=== PATIENT | male | born 1985 | race Caucasian/White ===

== ENCOUNTER 2017-04-22 19:05 | Emergency (ER) | payer OTHER ==
[~2017-04-22] VITALS: Ht 172.7 cm; Wt 82.0 kg
[~2017-04-22 19:05] MED LIST: CHLO.12%30 SSP; PENVK500 PO
[2017-04-22 19:07] VITALS: BP 143/85; PULSE 88; RESP 15; TEMP 98.8; O2SAT 98
--- NOTE | 2017-04-22 20:05 | PD ---
Physical Exam Date Seen by Provider: Apr 22, 2017 Time Seen by Provider: 20:03 Narrative 31 yo male here for rash to stomach. Has had it for a week. Painful. Warm. Pustule like. Getting bigger. No other medical issues. No fevers. Pain is 3/10. No injuries. Vitals are stable in triage. Awaiting bed placement. Data Data Last Documented VS Vital Signs Date Time Temp Pulse Resp B/P Pulse Ox O2 Delivery O2 Flow Rate FiO2 04/22/17 19:07 98.8 88 15 143/85 98 Room Air [facility] Medical Record Reviewed: Yes Supervised Visit with PRASANNA: No Abbe Jones Apr 22, 2017 20:05
[2017-04-22] MEDS ORDERED: CEPHALEXIN MONOHYDRATE 500 MG CAP PO ONE (23:15)
[2017-04-22] MEDS ORDERED: SULFAMETHOXAZOLE-TRIMETHOPRIM DS 800-160 MG TAB PO ONE (23:15)
[2017-04-22] MEDS ORDERED: BACT800T5 PO (23:19)
[2017-04-22] MEDS ORDERED: CEPH-460 PO (23:19)
--- NOTE | 2017-04-22 23:19 | PD ---
HPI Chief Complaint: Skin Problem Time Seen by Provider: 23:16 Travel History International Travel<30 days: No Contact w/Intl Traveler<30days: No Traveled to known affect area: No History of Present Illness HPI 31 year-old male with no significant medical history presents to the emergency department for evaluation of a reddened area on his right lower abdomen. Patient states he had what he thought was a pimple 3 days ago. He states he squeezed it and nothing came out. He states the redness has spread and he felt like he should get it evaluated. Denies any fever or chills. States the area is sore but not real painful. He has no other symptoms to report. He is up-to- date on his tetanus vaccination.. PFSH Past Medical History Medical History: Denies Significant Hx ?: Not Past Surgical History Surgical History: No Previous Surgery Social History Alcohol Use: Yes Tobacco Use: Yes Substance Use: No Allergies-Medications (Allergen,Severity, Reaction): Coded Allergies: No Known Allergies (Unverified , 04/12/16) Reported Meds & Prescriptions Reported Meds & Active Scripts Active Keflex (Cephalexin) 500 Mg Cap 500 Mg PO Q6H 5 Days Bactrim DS (Sulfamethoxazole-Trimethoprim) 800-160 Mg Tab 1 Tab PO BID Review of Systems Except as stated in HPI: all other systems reviewed are Neg Physical Exam Narrative GENERAL: Well-nourished, well-developed patient in no acute distress SKIN: Focused skin assessment warm/dry. HEAD: Normocephalic. EYES: No scleral icterus. No injection or drainage. NECK: Supple, trachea midline. No JVD or lymphadenopathy. CARDIOVASCULAR: Regular rate and rhythm without murmurs, gallops, or rubs. RESPIRATORY: Breath sounds equal bilaterally. No accessory muscle use. GASTROINTESTINAL: Abdomen soft, non-tender, nondistended. There is a 14 cm x 8 cm area of erythema on the right lower quadrant. At the center of this appears to be a 3 mm sized ruptured pustule. There is no fluctuation. There is moderate induration. No active drainage. MUSCULOSKELETAL: No cyanosis, or edema. BACK: Nontender without obvious deformity. No CVA tenderness. Data Data Last Documented VS Vital Signs Date Time Temp Pulse Resp B/P Pulse Ox O2 Delivery O2 Flow Rate FiO2 04/22/17 19:07 98.8 88 15 143/85 98 Room Air Orders Sulfamet-Trimeth Ds 800-160 Mg (Bactrim (04/22/17 23:15) Cephalexin (Keflex) (04/22/17 23:15) Clindamycin Inj (Cleocin Inj) (04/22/17 23:30) MDM Medical Decision Making Medical Screen Exam Complete: Yes Emergency Medical Condition: Yes Medical Record Reviewed: Yes Differential Diagnosis Cellulitis versus abscess versus folliculitis Narrative Course 31-year-old male presents to the emergency department for evaluation. Physical exam is consistent with a cellulitis. The areas marked. Patient is given a dose of antibiotic here. He is aware that this may develop into an abscess that will need to be drained here in the emergency department. He agrees to return immediately with any acute worsening of symptoms. Diagnosis Primary Impression: Cellulitis of right abdominal wall Referrals: Primary Care Physician Patient Instructions: Cellulitis (ED), General Instructions Departure Forms: Tests/Procedures, Work Release Enter return to work date: Apr 24, 2017 Additional Instructions: Warm compresses to the affected area DO NOT squeeze the area IF a raised area develops, it may need to be drained. This can be done in the emergency department. Do not attempt this on your own Take antibiotic as prescribed. Return immediately with any acute worsening of symptoms Med/Other Pt SpecificInfo: Prescription(s) given Scripts Cephalexin (Keflex)500 Mg [id number] Mg PO Q6H 5 Days Ref 0 Prov:Beata Rush 04/22/17 Sulfamethoxazole-Trimethoprim (Bactrim DS)800-160 Mg Tab1 Tab PO BID #20 TAB Ref 0 Prov:Beata Rush 04/22/17 Disposition: 01 DISCHARGE HOME Condition: Stable Beata Rush Apr 22, 2017 23:19
[2017-04-22] MEDS ORDERED: CLINDAMYCIN PHOS 600 MG/4 ML VIAL IM ONE (23:30)
== END 2017-04-23 00:05 | disposition home or self-care (01) ==
LOC: NEPD 19:05
DX: L03.311 Cellulitis of abdominal wall (principal); Z72.0 Tobacco use
CPT/HCPCS: 96372

== ENCOUNTER 2017-10-23 15:58 | Emergency (ER) | payer OTHER ==
[~2017-10-23] VITALS: Ht 172.7 cm; Wt 82.0 kg
[~2017-10-23 15:58] MED LIST changes: +BACT800T5 PO; +CEPH-460 PO; -CHLO.12%30 SSP; -PENVK500 PO
[2017-10-23 16:00] VITALS: BP 119/82; PULSE 79; RESP 18; TEMP 98.5; O2SAT 97
[2017-10-23] MEDS ORDERED: SULFAMETHOXAZOLE-TRIMETHOPRIM DS 800-160 MG TAB PO ONE (18:30)
[2017-10-23] MEDS ORDERED: CEPHALEXIN MONOHYDRATE 500 MG CAP PO ONE (18:30)
[2017-10-23] MEDS ORDERED: ERYTOIN10 LEFT EYE (18:34)
[2017-10-23] MEDS ORDERED: CEPH-460 PO (18:34)
[2017-10-23] MEDS ORDERED: BACT800T5 PO (18:34)
--- NOTE | 2017-10-23 18:35 | PD ---
HPI Chief Complaint: Skin Problem Time Seen by Provider: 18:15 Travel History International Travel<30 days: No Contact w/Intl Traveler<30days: No Traveled to known affect area: No History of Present Illness HPI 32-year-old male presents to the emergency department for evaluation of an area of erythema to his right abdominal wall. Patient states he had a small ingrown hair and popped this and now be erythema has spread. Patient denies any fevers or chills. He states that he is concerned that it also spread to his left eye as he has a small bump to the upper eyelid. He reports no chronic medical problems and takes no prescribed medications. He is not currently on antibiotics. No exacerbating or alleviating factors. Moderate severity. PFSH Past Medical History Diabetes: No ('BORDERLINE") Past Surgical History Surgical History: No Previous Surgery Social History Alcohol Use: No Tobacco Use: No Substance Use: No Allergies-Medications (Allergen,Severity, Reaction): Coded Allergies: No Known Allergies (Unverified Adverse Reaction, Unknown, 10/23/17) Reported Meds & Prescriptions Reported Meds & Active Scripts Active Keflex (Cephalexin) 500 Mg Cap 500 Mg PO Q6H 5 Days Bactrim DS (Sulfamethoxazole-Trimethoprim) 800-160 Mg Tab 1 Tab PO BID Review of Systems Except as stated in HPI: all other systems reviewed are Neg Physical Exam Narrative GENERAL: Well-nourished, well-developed male patient, ambulatory. Afebrile. SKIN: Focused skin assessment warm/dry. Patient is area of erythema to the right abdomen wall which measures 16 cm x 5 cm. This was outlined with a skin marker. There is no fluctuance or abscess formation at this time. HEAD: Normocephalic. Atraumatic. EYES: No scleral icterus. No injection or drainage. Patient has stye noted to the left upper eyelid. No surrounding erythema or edema. NECK: Supple, trachea midline. No JVD or lymphadenopathy. CARDIOVASCULAR: Regular rate and rhythm without murmurs, gallops, or rubs. RESPIRATORY: Breath sounds equal bilaterally. No accessory muscle use. Lungs sounds are clear to auscultation. GASTROINTESTINAL: Abdomen soft, non-tender, nondistended. MUSCULOSKELETAL: No cyanosis, or edema. BACK: Nontender without obvious deformity. No CVA tenderness. Data Data Last Documented VS Vital Signs Date Time Temp Pulse Resp B/P (MAP) Pulse Ox O2 Delivery O2 Flow Rate FiO2 10/23/17 16:00 98.5 79 18 119/82 (94) 97 Orders Orders Sulfamet-Trimeth Ds 800-160 Mg (Bactrim (10/23/17 18:30) Cephalexin (Keflex) (10/23/17 18:30) [facility] Medical Decision Making Medical Screen Exam Complete: Yes Emergency Medical Condition: Yes Medical Record Reviewed: Yes Differential Diagnosis Cellulitis versus abscess versus stye Narrative Course 32-year-old male presents to the emergency department for evaluation of area of erythema to his right abdominal wall as well as a bump to his left upper eyelid. Physical exam is consistent with cellulitis, stye. He is given first dose of Bactrim and Keflex in the emergency department. He is instructed on proper wound care. He'll be discharged with a prescription for erythromycin eye ointment and is instructed do warm, moist compresses with gentle massage to the stye. He is to follow-up with his primary care physician. He is return here for any acute worsening of symptoms. The patient was discharged in stable condition with instructions, including return instructions and follow up instructions. Diagnosis Primary Impression: Cellulitis of right abdominal wall Additional Impression: Stye Qualified Codes: H00.014 - Hordeolum externum left upper eyelid Referrals: Primary Care Physician 2 days Patient Instructions: Cellulitis (ED), General Instructions, Stye (ED) Additional Instructions: Take antibiotics as directed until gone. Clean area of redness to abdomen with soap and water and apply [id number] antibiotic ointment. Use of erythromycin eye ointment to left eye. Warm compresses with gentle massage to left eyelid. Follow-up with your primary care physician. Return to the emergency department for any acute worsening of symptoms. Med/Other Pt SpecificInfo: Prescription(s) given Scripts Erythromycin Opth Oint (Erythromycin Opth Oint) 5 Mg/Gm Oint 1 APPLIC LEFT EYE QID for Infection, #1 TUBE 0 Refills Prov: Gina Montoya 10/23/17 Cephalexin (Keflex) 500 Mg Cap 500 MG PO Q6H for Infection for 10 Days, #40 CAP 0 Refills Prov: Gina Montoya 10/23/17 Sulfamethoxazole-Trimethoprim (Bactrim DS) 800-160 Mg Tab 1 TAB PO BID for Infection, #20 TAB 0 Refills Prov: Gina Montoya 10/23/17 Disposition: 01 DISCHARGE HOME Condition: Stable Gina Montoya Oct 23, 2017 18:35
== END 2017-10-23 18:59 | disposition home or self-care (01) ==
LOC: NEPD 15:58
DX: L03.311 Cellulitis of abdominal wall (principal); H00.014 Hordeolum externum left upper eyelid
CPT/HCPCS: 99284

== ENCOUNTER 2017-11-28 15:45 | Emergency (ER) | payer OTHER ==
[~2017-11-28 15:45] MED LIST changes: +ERYTOIN10 LEFT EYE
[2017-11-28 16:03] VITALS: BP 150/69; PULSE 71; RESP 15; TEMP 98.4; O2SAT 99
[2017-11-28] MEDS ORDERED: BACT800T5 PO (17:39)
--- NOTE | 2017-11-28 17:39 | PD ---
HPI Chief Complaint: Skin Problem Time Seen by Provider: 16:59 Travel History International Travel<30 days: No Contact w/Intl Traveler<30days: No Traveled to known affect area: No History of Present Illness HPI This is a 32-year-old male here with a painful lesion to the posterior aspect of his neck 2 days. He reports a history of abscesses in the past. He reports the area spontaneously drained this morning. Denies fever or chills. Reports areas become increasingly more painful over the last 2 days. Symptom severity is mild. PFSH Past Medical History Medical History: Denies Significant Hx Diabetes: No ('BORDERLINE") Social History Alcohol Use: No Tobacco Use: No Substance Use: No Allergies-Medications (Allergen,Severity, Reaction): Coded Allergies: No Known Allergies (Unverified Adverse Reaction, Unknown, 10/23/17) Reported Meds & Prescriptions Reported Meds & Active Scripts Active Erythromycin Opth Oint 5 Mg/Gm Oint 1 Applic LEFT EYE QID Keflex (Cephalexin) 500 Mg Cap 500 Mg PO Q6H 10 Days Bactrim DS (Sulfamethoxazole-Trimethoprim) 800-160 Mg Tab 1 Tab PO BID Review of Systems Except as stated in HPI: all other systems reviewed are Neg General / Constitutional: No: Fever Physical Exam Narrative GENERAL: Alert and well-appearing 32-year-old male SKIN: Warm and dry. 1 cm raised indurated area to the posterior aspect of the neck. No fluctuance. No surrounding cellulites. Small central scab with no drainage. HEAD: Normocephalic. EYES: No scleral icterus. No injection or drainage. NECK: Supple, trachea midline. No cervical midline tenderness. Freely moves the neck CARDIOVASCULAR: Regular rate and rhythm RESPIRATORY: Breath sounds equal bilaterally. No accessory muscle use. GASTROINTESTINAL: Abdomen soft, non-tender, nondistended. MUSCULOSKELETAL: No cyanosis, or edema. BACK: Nontender without obvious deformity. No CVA tenderness. Data Data Last Documented VS Vital Signs Date Time Temp Pulse Resp B/P (MAP) Pulse Ox O2 Delivery O2 Flow Rate FiO2 11/28/17 16:03 98.4 71 15 150/69 (96) 99 MDM Medical Decision Making Medical Screen Exam Complete: Yes Emergency Medical Condition: Yes Differential Diagnosis Abscess, cellulitis, folliculitis Narrative Course 32-year-old male here with small indurated abscess to the posterior aspect of the neck. The area spontaneous the drain today. He'll be put on Bactrim and instructed to apply warm compresses to the area. Diagnosis Primary Impression: Abscess Referrals: Primary Care Physician Additional Instructions: Apply warm compresses to the area. Antibiotics as directed. Follow-up primary doctor. Scripts Sulfamethoxazole-Trimethoprim (Bactrim DS) 800-160 Mg Tab 1 TAB PO BID for Infection, #20 TAB 0 Refills Prov: Deepa Danielson 11/28/17 Disposition: 01 DISCHARGE HOME Condition: Stable Deepa Danielson Nov 28, 2017 17:39
== END 2017-11-28 17:56 | disposition home or self-care (01) ==
LOC: NEPK 15:45
DX: L02.11 Cutaneous abscess of neck (principal)
CPT/HCPCS: 99283